=== PATIENT | male | born 2000 | race African-American/Black ===

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

== ENCOUNTER → 2019-02-05 14:01 | Outpatient (CLI) | payer OTHER, SELFPAY ==
[2019-02-04 13:53] VITALS: BMI 30.8
== END ==
PROVIDERS: Family Provider Pediatrics; PCP Pediatrics; Referring Provider Physician Assistant Surgical; Visit Provider Physician Assistant Surgical
DX: J02.9 Acute pharyngitis, unspecified (principal)
CPT/HCPCS: 87081